=== PATIENT | male | born 1955 | race Caucasian/White ===

== ENCOUNTER 2022-09-29 10:50 | Emergency (ER) | payer MEDICARE, BC, SELFPAY ==
[2022-09-29] VITALS (30 sets, daily range): BP systolic 106–157; BP diastolic 78–92; PULSE 73–118; RESP 11–97; TEMP 36.4; O2SAT 94–99; BMI 34.2
--- NOTE | 2022-09-29 11:41 | ED.ARRPALP ---
HPI - Arrhythmia/Palpitations General Chief Complaint: Arrhythmia/Palpitations Stated Complaint: Afib Time Seen by Provider: 09/29/22 11:14 History of Present Illness HPI narrative: This 66-year-old male comes in with atrial fibrillation and rapid ventricular response. He states that he did not know that he was in this kind of rhythm. He was noted to have a heart rate at around 170 beats per minute prior to arrival. He arrives here with tachycardia around 120 beats per minute. He is not describing any symptoms. He is taking Eliquis and states that he also takes diltiazem long-acting in the evening. Related Data Allergies Allergy/AdvReac Type Severity Reaction Status Date / Time No Known Drug Allergies Allergy Verified 09/29/22 10:56 Review of Systems Status of ROS: Reports: 10 or more systems reviewed and unremarkable except as noted in History and below Narrative: Constitutional: No fevers, no weight gain or loss. Eyes: No discharge. No vision changes. HENT: No congestion, no sore throat, no ear pain. Cardiovascular: No chest pain, no palpitations. Respiratory: No shortness of breath, no wheezes, no cough. Gastrointestinal: No abdominal pain, no vomiting, no diarrhea. Genitourinary: No dysuria, no hematuria. Musculoskeletal: Normal range of motion. Skin: No rashes, no pruritis. Neurological: No dizziness, weakness, sensory change, speech change. Endo/Heme/Allergies: No bruising or bleeding. No polydipsia. Pysch: no suicidality, no anxiety, no insomnia. All other systems reviewed and are negative. PFSH PFS Social History Smoking Status: Former smoker Do you use any of these nicotine containing products: None Second hand tobacco smoke exposure: Yes How often do you have a drink containing alcohol: never How often do you have six or more drinks on one occasion: Never AUDIT-C Alcohol total score: 0 Non-prescribed substance use: denies use service: No Exam Narrative: Exam Narrative: Constitutional: Well-developed, well-nourished, no acute distress. HEENT: Normocephalic, atraumatic. Neck: Normal range of motion. Nontender. Supple. Heart: Irregular. No murmurs. Tachycardia, rate 100-120 beats per minute. Intact distal pulses. Lungs: Clear to auscultation. No chest discomfort. No wheezes, rhonchi, or rales. Abdomen: Normal bowel sounds. Nontender. No rebound tenderness. Genitalia: Deferred. Back: No midline tenderness. Normal range of motion. Extremities: Normal range of motion. No injury. No pedal edema. Skin: Intact. No rash. Warm. No erythema or pallor. Neurologic: No altered sensation. No weakness. Alert and oriented. Psychiatric: No suicidality. No anxiety or depression. No insomnia. Nursing notes and vitals signs are reviewed. Const: Vital Signs, click to edit/add: Vital Signs - 24 hr 09/29/22 10:57 09/29/22 11:01 09/29/22 11:02 Temperature 97.6 F Pulse Rate 96 103 H Pulse Rate [Pulse Oximeter] 118 H Respiratory Rate 97 H Blood Pressure 126/92 H Blood Pressure [Le ft Upper Arm] 126/92 H Pulse Oximetry 97 98 97 Oxygen Delivery Me thod Room Air Oxygen Flow Rate 09/29/22 11:15 09/29/22 11:30 09/29/22 11:45 Temperature Pulse Rate 95 93 95 Pulse Rate [Pulse Oximeter] Respiratory Rate Blood Pressure Blood Pressure [Le ft Upper Arm] Pulse Oximetry 97 95 96 Oxygen Delivery Me thod Oxygen Flow Rate 09/29/22 11:57 09/29/22 12:00 09/29/22 12:01 Temperature Pulse Rate 97 102 H 103 H Pulse Rate [Pulse Oximeter] Respiratory Rate Blood Pressure 125/85 114/81 Blood Pressure [Le ft Upper Arm] Pulse Oximetry 98 98 97 Oxygen Delivery Me thod Oxygen Flow Rate 09/29/22 12:15 09/29/22 12:30 09/29/22 12:31 Temperature Pulse Rate 94 97 89 Pulse Rate [Pulse Oximeter] Respiratory Rate Blood Pressure 106/87 Blood Pressure [Le ft Upper Arm] Pulse Oximetry 96 97 95 Oxygen Delivery Me thod Oxygen Flow Rate 09/29/22 12:59 09/29/22 13:00 09/29/22 13:01 Temperature Pulse Rate 89 Pulse Rate [Pulse Oximeter] Respiratory Rate 17 18 16 Blood Pressure 157/86 H Blood Pressure [Le ft Upper Arm] Pulse Oximetry 99 Oxygen Delivery Me thod Oxygen Flow Rate 09/29/22 13:01 09/29/22 13:01 09/29/22 13:01 Temperature Pulse Rate 89 89 89 Pulse Rate [Pulse Oximeter] Respiratory Rate 16 16 16 Blood Pressure 157/86 H 157/86 H 157/86 H Blood Pressure [Le ft Upper Arm] Pulse Oximetry 99 99 99 Oxygen Delivery Me thod Oxygen Flow Rate 09/29/22 13:12 09/29/22 13:15 09/29/22 13:18 Temperature Pulse Rate 84 79 76 Pulse Rate [Pulse Oximeter] Respiratory Rate 22 21 18 Blood Pressure 114/78 122/80 Blood Pressure [Le ft Upper Arm] Pulse Oximetry 94 98 98 Oxygen Delivery Me thod Oxygen Flow Rate 09/29/22 13:22 09/29/22 13:22 09/29/22 13:25 Temperature Pulse Rate 74 Pulse Rate [Pulse Oximeter] Respiratory Rate 18 Blood Pressure 117/80 Blood Pressure [Le ft Upper Arm] Pulse Oximetry 99 97 99 Oxygen Delivery Me thod Nasal Cannula Nasal Cannula Oxygen Flow Rate 2 2 09/29/22 13:26 09/29/22 13:27 09/29/22 13:30 Temperature Pulse Rate 73 74 74 Pulse Rate [Pulse Oximeter] Respiratory Rate 15 16 13 Blood Pressure 129/82 Blood Pressure [Le ft Upper Arm] Pulse Oximetry 98 97 97 Oxygen Delivery Me thod Oxygen Flow Rate 09/29/22 13:31 09/29/22 13:37 09/29/22 13:42 Temperature Pulse Rate 76 73 76 Pulse Rate [Pulse Oximeter] Respiratory Rate 17 Blood Pressure 125/80 120/82 124/79 Blood Pressure [Le ft Upper Arm] Pulse Oximetry 98 97 97 Oxygen Delivery Me thod Oxygen Flow Rate 09/29/22 13:45 09/29/22 13:46 09/29/22 13:47 Temperature Pulse Rate 73 75 78 Pulse Rate [Pulse Oximeter] Respiratory Rate 14 11 L 12 Blood Pressure 131/84 Blood Pressure [Le ft Upper Arm] Pulse Oximetry 97 98 96 Oxygen Delivery Me thod Oxygen Flow Rate 09/29/22 13:51 Temperature Pulse Rate 79 Pulse Rate [Pulse Oximeter] Respiratory Rate Blood Pressure 130/81 Blood Pressure [Le ft Upper Arm] Pulse Oximetry 98 Oxygen Delivery Me thod Oxygen Flow Rate Course Course Hospital Course: Procedure note: I was asked to provide sedation for cardioversion. Please see Dr. Pate's full note. Patient was maintained on bus driver/monitor, oximetry, end-tidal CO2. Respiratory therapy was present as well. Patient was given 80 mg of propofol based on a weight of 111 kg. He had adequate sedation with that dose and was cardioverted successfully. He had no apnea, hypoxia, hypercapnia. Awakened without difficulty. No immediate complications. Vital Signs Vital signs: Initial Vital Signs Temperature 97.6 F 09/29/22 10:57 Temperature Source Temporal Artery Scan 09/29/22 10:57 Pulse Rate 118 H 09/29/22 10:57 Pulse Rhythm Irregular 09/29/22 10:57 Respiratory Rate 97 H 09/29/22 10:57 Blood Pressure 126/92 H 09/29/22 10:57 Blood Pressure Mean 103 09/29/22 10:57 Blood Pressure Position Supine 09/29/22 10:57 Pulse Oximetry 97 09/29/22 10:57 Oxygen Delivery Method Room Air 09/29/22 10:57 Vital Signs Temperature 97.6 F 09/29/22 10:57 Pulse Rate 118 H 09/29/22 10:57 Respiratory Rate 97 H 09/29/22 10:57 Blood Pressure 126/92 H 09/29/22 10:57 Pulse Oximetry 97 09/29/22 10:57 Oxygen Delivery Method Room Air 09/29/22 10:57 Temperature 97.6 F 09/29/22 10:57 Pulse Rate 79 09/29/22 13:51 Respiratory Rate 12 09/29/22 13:47 Blood Pressure 130/81 09/29/22 13:51 Pulse Oximetry 98 09/29/22 13:51 Oxygen Delivery Method Nasal Cannula 09/29/22 13:25 Oxygen Flow Rate 2 09/29/22 13:25 MDM - Arrhythmia/Palpitations MDM Narrative Medical decision making narrative: This patient arrives with atrial fibrillation and rapid ventricular response. He is taking Eliquis and also does take a long-acting diltiazem in the evenings. An IV was established where he did receive a half a L of normal saline. Lab results returned with normal findings. The patient did receive an additional 10 mg of diltiazem intravenously. This brought about good rate control but he continues in atrial fibrillation. The patient is a candidate for cardioversion. I did explain risks and benefits and the patient wishes to have cardioversion with sedation. The patient states that he did have a glazed donut about 4 hours prior to arrival. Dr. Radford assisted in this procedure. Respiratory therapy also was present. After acquiring informed consent, The patient did receive 80 mg of propofol intravenously to acquire sufficient sedation. He received a 1 time cardioversion with 150 joules of energy. This brought him back to normal sinus rhythm. Repeat EKG shows this with a rate of 75 beats per minute. At the time of discharge the patient appears safe for outpatient management. The treatment plan is reviewed along with written and verbal return precautions. Reasons to return and the importance of close followup were also reviewed. Lab Data Labs: Lab Results 09/29/22 Range/Units 11:05 WBC 8.55 (4.50-11.00) K/uL RBC 4.75 (4.30-5.90) m/uL Hgb 14.8 (13.5-17.5) gm/dL Hct 43.7 (37.0-53.0) % MCV 92 (80-100) fL MCH 31 (26-34) pg MCHC 34 (32-36) gm/dL RDW Coeff of [place] 12.9 (11.5-15.5) % Plt Count 255 (140-440) K/uL Neut % (Auto) 65.8 (42.0-72.0) % Lymph % (Auto) 20.1 (20-44) % [place] % (Auto) 10.5 (0.0-11.0) % Eos % (Auto) 2.5 (0.0-7.0) % Baso % (Auto) 0.9 (0.0-3.0) % Neut # (Auto) 5.62 (1.7-7.0) K/uL Lymph # (Auto) 1.72 (0.90-2.90) K/uL [place] # (Auto) 0.90 (0.00-0.90) K/UL Eos # (Auto) 0.21 (0.00-0.50) K/uL Baso # (Auto) 0.08 (0.00-0.30) K/uL Sodium 138 (135-149) mmol/L Potassium 4.2 (3.6-5.1) mmol/L Chloride 100 (96-114) mmol/L Carbon Dioxide 27 (20-32) mmol/L BUN 16 (7-30) mg/dL Creatinine 1.0 (0.5-1.5) mg/dL Estimated Creat Clear 76.35 Estimated GFR 82 ml/min Glucose 115 (60-115) mg/dL Calcium 9.9 (8.4-10.6) mg/dL POC Troponin I 0.00 L (0.01-0.04) ng/ml ECG Data Attestation: I personally reviewed and interpreted this ECG as follows: Interpretation: Atrial fibrillation with rapid ventricular response. Rate is 114 beats per minute. There are no specific ST or T-wave abnormalities. Discharge Plan Discharge Clinical Impression: Atrial fibrillation with rapid ventricular response Clinical Impression: (Ruled Out): Atrial fibrillation Patient Disposition: Home w/ Parent or Adult Instructions: A-fib (Atrial Fibrillation) (ED) Additional Instructions: Continue current medications. Follow up with MD or return if symptoms are recurrent or worsening. Follow Up/Referrals: Gerry Smart MD [Primary Care Provider] - Stand Alone Forms: [facility] Info Instructions
[2022-09-29 11:48] LABS: Basophils Absolute Auto 0.08 K/uL (0.00-0.30); Basophils Percent Auto 0.9 % (0.0-3.0); Eosinophils Absolute Auto 0.21 K/uL (0.00-0.50); Eosinophils Percent Auto 2.5 % (0.0-7.0); Hematocrit 43.7 % (37.0-53.0); Hemoglobin* 14.8 gm/dL (13.5-17.5); Immature Granulocytes Abs Auto 0.02 K/uL (0.00-0.30); Immature Granulocytes Pct Auto 0.2 %; Lymphocytes Absolute Auto 1.72 K/uL (0.90-2.90); Lymphocytes Percent Auto 20.1 % (20-44); Mean Corpuscular HGB Conc 34 gm/dL (32-36); Mean Corpuscular Hemoglobin 31 pg (26-34); Mean Corpuscular Volume 92 fL (80-100); Monocytes Percent Auto 10.5 % (0.0-11.0); Neutrophils Absolute Auto 5.62 K/uL (1.7-7.0); Neutrophils Percent Auto 65.8 % (42.0-72.0); Platelet Count* 255 K/uL (140-440); RDW Coefficient of Variation % 12.9 % (11.5-15.5); Red Blood Count 4.75 m/uL (4.30-5.90); White Blood Count* 8.55 K/uL (4.50-11.00)
[2022-09-29] MEDS: 0.9 % SODIUM CHLORIDE 500 ML 500 ML IV (11:58)
[2022-09-29] MEDS: dilTIAZem 5 MG/ML inj 10 MG IVP (11:58)
[2022-09-29 12:04] LABS: Chloride* 100 mmol/L (96-114); Potassium* 4.2 mmol/L (3.6-5.1); Sodium* 138 mmol/L (135-149)
[2022-09-29 12:07] LABS: Blood Urea Nitrogen* 16 mg/dL (7-30); Calcium* 9.9 mg/dL (8.4-10.6); Carbon Dioxide* 27 mmol/L (20-32); Est. Creatinine Clearance* 76.35; Estimated Glomerular Filt Rate 82 ml/min; Glucose* 115 mg/dL (60-115)
[2022-09-29 12:12] LABS: Slide Review Reflex No
[2022-09-29] MEDS: PROPOFOL 10 MG/ML INJ 200 MG IVP (13:27)
== END 2022-09-29 14:04 | disposition home or self-care (01) ==
PROVIDERS: Emergency Provider Emergency Medicine Emergency Medical Services; PCP Family Medicine
DX: I48.91 Unspecified atrial fibrillation (principal)
CPT/HCPCS: 36415; 80048; 84484; 85025; 92960; 93005; 96361; 96374; 99284; J2704; J7120

== ENCOUNTER 2023-11-05 07:38 | Outpatient (CLI) | payer MEDICARE, BC, SELFPAY ==
--- OUTSIDE RECORDS SUMMARY | 2023-11-05 07:41 | XMS_ITS | Clinical Summary ---
Author Organization [facility] Address [place], [place] [address] Care Team Providers Care Sprigger Name Role Phone Gerry Smart MD Primary Care Provider Allergies Active Allergy Reactions Criticality Noted Date Comments Hydrochlorothiazide Other - Describe In Comment Field 07/21/2022 Cramps resolved without it Medications Medication Sig Dispensed Refills Start Date End Date Status multivitamin (MVI) tablet Take 1 tablet by mouth once daily. 0 08/17/2016 Active metoprolol succinate (TOPROL XL) 50 mg sustained-release tabletIndications:P aroxysmal atrial fibrillation (HC) Take 0.5 Tablets (25 mg) by mouth two times daily. FURTHER REFILLS AT OFFICE VISIT ON 01/08/23 90 Tablet 3 01/30/2023 Active rosuvastatin (CRESTOR) 5 mg tabletIndications:M ixed hyperlipidemia Take 1 Tablet (5 mg) by mouth at bedtime. 90 Tablet 3 01/30/2023 Active polyethylene glycol-electrolyte (GOLYTELY) 236-22.74-6.74 -5.86 gram suspensionIndicatio ns:Benign neoplasm of colon, unspecified part of colon Drink 2 liters the day before colonoscopy and 2 liters 6 hours before colonoscopy appointment 4000 mL 10/29/2023 Active apixaban (Eliquis) 5 mg tabletIndications:P aroxysmal atrial fibrillation (HC) Take 1 Tablet (5 mg) by mouth two times daily. 180 Tablet 2 09/26/2023 Active lisinopriL (PRINIVIL; ZESTRIL) 10 mg tabletIndications:E ssential hypertension Take 1 Tablet (10 mg) by mouth once daily. 90 Tablet 10/26/2023 Active lisinopriL (PRINIVIL; ZESTRIL) 10 mg tabletIndications:E ssential hypertension Take 1 Tablet (10 mg) by mouth once daily. 90 Tablet 3 01/30/2023 4 Discontinu ed(*Availa bility/For mulary change/Cos t of medication ) propafenone (RYTHMOL) 150 mg tabletIndications:P aroxysmal atrial fibrillation (HC) Take 1 Tablet (150 mg) by mouth every 12 hours. 180 Tablet 2 05/01/2023 4 Discontinu ed(*Patien t states no longer taking) Active Problems Problem Noted Date Diagnosed Date Atrial fibrillation 10/09/2023 Anticoagulation monitoring, DOAC 04/09/2020 Controlled type 2 diabetes m ellitus without complication, without long-term current use of insulin 02/04/2020 Paroxysmal atrial fibrillation 02/06/2017 Unspecified essential hypertension 02/18/2013 Benign neoplasm of colon 12/21/2009 Overview: Colonoscopy 11/2009 polyps repeat in 3 years Colonoscopy 09/2012 polyp repeat in 5 years Colonoscopy 05/2018 polyps, repeat in 5 years Mixed hyperlipidemia 11/28/2006 Obesity, unspecified 11/28/2006 Resolved Problems Problem Noted Date Diagnosed Date Resolved Date Atrial fibrillation, unspecified type 04/08/2020 07/21/2022 Shoulder dislocation, left, subsequent encounter 05/30/2018 07/21/2021 Atrial fibrillation 02/06/2017 07/22/19 22 Anticoagulation monitoring, INR range 2-3 [Z79.01] 12/15/2015 04/08/2020 Vitamin D deficiency 04/21/2014 020 Tobacco use disorder 11/28/2006 020 Impaired fasting glucose 11/28/2006 Encounters Date Type Department Care Team Description 11/02/2023 Travel 10/24/2023 Refill [facility] [address] [place] [address] Gerry Smart MD Refill Request (Lisinopril) 10/22/2023 10:05 AM CDT Preop Visit [facility] [address] [place] [address] Gerry Smart MD Preoperative Exam (DOS: 11/05/2023, colonoscopy, Dr. Calloway, [facility] ) 10/21/2023 Travel 10/17/2023 Telephone [facility] [address] [place] [address] Marnie Mcqueen NP Abstract 10/09/2023 2:30 PM CDT Office Visit [facility] [address] [place] [address] Paxton Ayers MD Follow Up (05/01/23 Ablation) 10/09/2023 Travel 09/25/2023 Refill [facility] [address] [place] [address] Gerry Smart MD Refill Request (Eliquis) 09/10/2023 7:30 AM CDT Ancillary Procedure [facility] [address] [place] [address] 09/10/2023 Travel 09/07/2023 2:00 PM CDT Ancillary Procedure [facility] [address] [place] [address] 09/07/2023 Travel 08/06/2023 8:00 AM CDT Office Visit [facility] [address] [place] [address] Gerry Smart MD Diabetes (3 month follow up) 08/06/[address] [address] Aleksandr Calloway MD Appointment 08/06/2023 Travel from Last 3 Months Immunizations Name Administration Dates Next Due COVID-19 Vaccine Spikevax (M oderna 50mcg/0.5mL) 12YO+ [id number] Formula PF 08/06/2023 COVID-19 vaccine (Pfizer-Bio NTech 30mcg/0.3mL) 12YO+ BIVALENT SHANIQUE CHO 05/16/2022 COVID-19 vaccine (Pfizer-Bio NTech 30mcg/0.3mL) 12YO+ PAOLO-SUCROSE PF MDV 01/03/2022 COVID-19 vaccine (Ekso BionicsBio NTech 30mcg/0.3mL) PF, MDV 02/13/2021,07/11/2020,06/18/2020 Influenza A (H1N1), Inactivated 05/07/2009 Influenza Virus, Unspecified 03/21/2014 Influenza, High-dose Quadriv alent Inactivated 03/03/2022,02/10/2021 Influenza, IIV3 (Age >=3 years) 02/18/2013,02/13,02/08/2011 Influenza, IIV4 02/16/2016,02/18/2015 Influenza, IIV4 (=>6mos) MDV 03/06/2019,02/26/20 18,02/06/2017 Influenza, Inactivated AIIV4 (Age 65+ Years) Preserv Free 01/30/2023,02/04/2020 Pneumococcal Conj 20-valent (Prevnar 20) 022 Pneumococcal Poly,23-Valent (Pneumovax) 04/21/20 14 Pneumococcal conj 13-Valent (Prevnar 13) 020 Td (Age >=7 Years) 10/14/1996 Tdap 06/27/2016,10/24/2006 Zoster (Shingrix-RZV, recombinant) 05/05/2019, Zoster (Zostavax-ZVL, live) 05/06/2013 Family History Medical History Relation Name Comments Cancer Father leukemia/ decea sed at 71 Diabetes Maternal Grandfather Heart Disease Maternal Grandfather mi bef ore 55 Other Maternal Grandfather suma ons Diabetes Mother Cancer-prostate Neg. Cancer Paternal Grandmother pancrea tic Anesthesia Problem No Family History Relation Name Status Comments Father Maternal Grandfather Mother Alive Neg. Paternal Grandmother Social History Tobacco Use Types Packs/Day Years Used Date Smoking Tobacco: Former Cigarettes 1 40 0 12/23/1975 - 12/23/2015 Smokeless Tobacco: Never Tobacco Cessation:Counseling Given: No Comments:Patient using nicotine lozenges Alcohol Use Standard Drinks/Week Comments No 0 (1 standard drink = 0.6 oz pur e alcohol) PHQ-2 Answer Date Recorded PHQ-2 TOTAL SCORE 0 01/30/2023 Social Connections Answer Date Recorded Frequency of Communication with Friends and Fami ly 0 01/30/2023 Financial Resource Strain Answer Date R ecorded Difficulty of Paying Living Expenses 3 01/30/2023 Difficulty of Paying Living Expenses Not on file 01/30/2023 Food Insecurity Answer Date Recorded Worried About Running Out of Food in the Last Ye ar 1 01/30/2023 Transportation Needs Answer Date Record ed Lack of Transportation (Medical) 1 01/30/2023 Housing Stability Answer Date Recorded Unable to Pay for Housing in the Last Year 1 01/30/2023 Sex and Gender Information Value Date Recorded Sex Assigned at Male 09/10/2023 5:36 AM CDT Gender Identity Male 09/10/2023 5:36 AM CDT Sexual Orientation Straight 09/10/2023 5: 36 AM CDT Obstetrics History Last Filed Vital Signs Vital Sign Reading Time Taken Comments Blood Pressure 145/79 10/22/2023 10:07 AM CDT Pulse 52 10/22/2023 10:07 AM CDT Temperature 36.7 ??C (98.1 ??F) 01/10/2023 7:09 AM CD T Respiratory Rate 18 01/10/2023 8:44 AM CDT Oxygen Saturation 98% 10/22/2023 10:07 AM CDT Inhaled Oxygen Concentration - - Weight 112 kg (247 lb) 10/22/2023 10:07 AM CDT Height 182.9 cm (6') 10/22/2023 10:07 AM CDT Body Mass Index 33.5 10/22/2023 10:07 AM CDT Plan of Treatment Upcoming Encounters Date Type Department Care Team (Late st Contact Info) Description 11/05/2023 7:45 AM CDT Office Visit [facility] [address] [place] [address] Aleksandr Calloway MD [address] [place] [address] 02/13/2024 2:30 PM CDT Office Visit [address] [place] [address] Loli Haywood PA [address] [facility] [address] [place] [address] 02/25/2024 7:15 AM CDT Orders Only [facility] [address] [place] [address] [place], [place] 02/25/2024 8:00 AM CDT Office Visit [facility] [address] [place] [address] Gerry Smart MD [address] [facility] [address] Health Maintenance Due Date Last Done Comments Colonoscopy through age 75 06/03/202306/03, 06/03/2018, 06/03/2018, Additional history exists COVID-19 vaccine series ( season) 2023 08/06/2023, 05/16/2022, 01/03/2022, Additional history exists Influenza for age 65+ 01/20/2024 01/30/2023 , 03/03/2022, 02/10/2021, Additional history exists Depression screening for age 12+ 01/31/2024 01/30/2023, 01/03/2022, 02/04/2020, Additional history exists Medicare Wellness for age 65+ 01/31/2024 01/30/[address] (for lung CA) ag e 50-80 09/09/2024 09/10/2023, 09/04/2022, 09/01/2021, Additional history exists BMI (ht and wt on same day) for age 18+ 10/21/2024 10/22/2023, 05/01/2023, 01/30/2023, Additional history exists Tetanus booster 06/27/2026 06/27/2016, 10/2006, 10/14/1996 Lipids for age 45-75 01/16/2028 01/15/2023, 01/03/2022, 12/13/2020, Additional history exists Tdap Completed 06/27/2016, 10/24/2006 Hepatitis C screening for ag e 18-79 Completed 09/12/2017 Zoster (shingles) series for age 50+ Completed 05/05/2019, 03/06/2019, 05/06/2013 Pneumococcal series for age 65+ Completed 05/16/2022, 02/04/2020, 04/21/2014 AAA screening age 65-74 Completed 02/19/2023 Procedures Procedure Name Priority Date/Time Associated Diagnosis Comments CT CHEST SCREENING LOW DOSE WO CONTRAST Routine 09/10/2023 7:34 AM CDT Former smoker Encounter for screening for lung cancer ECHO TTE COMPLETE WO CONTRAST Routine 09/07/2023 2:42 PM CDT LVH (left ventricular hypertrophy) HEMOGLOBIN A1C Routine 08/06/2023 7:51 AM CDT Controlled type 2 diabetes mellitus without complication, without long-term current use of insulin (HC) US AORTA Routine 02/19/2023 8:18 AM CDT Screening for AAA (abdominal aortic aneurysm) LIPID PANEL W REFLEX MEASURED LDL Routine 01/15/2023 7:03 AM CDT Controlled type 2 diabetes mellitus without complication, without long-term current use of insulin (HC) COLONOSCOPY SCREENING Routine 06/03/2018 Screening for colon cancer ANTI HCV Routine 09/12/2017 9:16 AM CDT Need for hepatitis C screening test from Last 3 Months or Most Recently Relevant to Health Maintenance Results * CT CHEST SCREENING LOW DOSE WO CONTRAST (09/10/2023 7:34 AM CDT) Anatomical Region Laterality Modality Computed Tomogra phy Impressions 09/11/2023 1:49 PM CDT Negative for lung cancer screening purposes. LUNG-RADS CATEGORY 2: Benign. RADIOLOGIST RECOMMENDATION: Continue annual screening with low-dose CT chest in 12 months. Please note that all CT scans at this facility use dose modulation, iterative reconstruction and/or weight-based dosing when appropriate to reduce radiation dose to as low as reasonably achievable. ?? Dictated by: Chuck Oconnor MD @09/10/2023 11:34:06 AM/CRL:lamine Narrative 09/11/2023 1:49 PM CDT For Patients: As a result of the Century Cures Act, medical imaging exams and procedure reports are released immediately into your electronic medical record. ??You may view this report before your referring provider. ?? If you have questions, please contact your health care provider. CHEST SCREENING LOW DOSE WITHOUT CONTRAST INDICATION: Lung cancer screening. History of smoking. High risk patient with greater than 20 pack-year smoking history. TECHNIQUE: Low-dose lung cancer screening non-contrast CT chest. Dose reduction techniques were used. COMPARISON: 09/04/2022 FINDINGS: NODULES: Small calcified granuloma within the right lower lobe. LUNGS AND PLEURA: Biapical pleural-parenchymal scarring. Mild emphysematous changes. MEDIASTINUM: Atherosclerotic changes. No adenopathy. CORONARY ARTERY CALCIFICATION: Present. LIMITED UPPER ABDOMEN: Calcified gallstone is similar. MUSCULOSKELETAL: Normal. Gerry Smart MD CT * ECHO TTE COMPLETE WO CONTRAST (09/07/2023 2:42 PM CDT) AORTIC VALVE MEAN PG 4 mmHg EJECTION FRACTION 69 % PEAK TR VELOCITY 2.3 m/s LVEDD 4.8 cm Anatomical Region Laterality Modality Ultrasound 09/07/2023 2:14 PM CDT Narrative 09/07/2023 4:05 PM CDT ECHOCARDIOGRAM KELVIN THOMAS ? Accession#: ?? [id number] : ?1955 67 years Study Date: ?? 09/07/2023 2:14:31 PM Gender: M ?BP: ? 135/65 mmHg Height: 180.00 cm ?BSA: ?2.35 m? ? ? Weight: 118.00 kg ?Tech: ? MJS ? Referring MD: MARNIE MCQUEEN Site: ? [facility] Reading Location: Mobile OP Patient Location: Outpatient. Procedure: 2D, Color Doppler and Spectral Doppler. Indication for study: LVH Cardiac Rhythm: Irregular.Study quality: Good. Final Impressions: 1. Normal left ventricular size, normal wall thickness, normal global systolic function, calculated EF of 69 %. 2. The aortic valve is trileaflet and sclerotic, no stenosis and no regurgitation. Chamber Sizes and Function Normal left ventricular size, normal wall thickness, normal global systolic function, calculated EF of 69 %. Left atrial size is normal. Right ventricular cavity size is normal, global systolic RV function is normal. RV wall thickness is normal. The right atrium is normal. Right atrial area is 16 cm? ? ?. The pulmonary artery is of normal size and origin. The sinus of Valsalva is normal sized. The ascending aorta is normal sized. Valves, RV Pressures and Diastolic Function The aortic valve is trileaflet and sclerotic, no stenosis and no regurgitation. The mitral valve is normal in structure, no mitral regurgitation. Indeterminate pattern of LV diastolic filling. The tricuspid valve is normal in structure. Tricuspid regurgitation is trace regurgitation. The tricuspid regurgitant velocity is 2.3 m/s, the estimated right ventricular systolic pressure is 21 mmHg plus right atrial pressure. There is normal estimated pulmonary pressure by tricuspid regurgitation velocity and right atrial pressure. The pulmonic valve is normal. No pulmonary regurgitation. TTE images do not appear adequate for transcather intervention with patient supine. Masses, Effusion, Shunts There is no pericardial effusion. The inferior vena cava is normal sized, respiratory size variation greater than 50%. No left to right shunting was detected by limited color flow Doppler interrogation of the interatrial septum. MEASUREMENTS AND CALCULATIONS 2-D Measurements and LV Function: LVID (d) 4.8 cm Planimetered EF 69 % LVID (s) 2.9 cm LV FS% (2D) ? 40 % IVS (d) ??1.1 cm LVOT diameter ?? 2.2 cm LVPW (d) 1.1 cm HR ?47 bpm Ao Sinus 3.8 cm LA Vol index ?25 ml/m2 Asc Ao ?? 3.6 cm RA area ? 16 cm?RV Max 4C (d) ?? 4.3 cm Diastology: Mitral ?Tissue Doppler E Peak 1.1 m/s ??e', Septum ? 0.11 m/s A Peak 0.5 m/s ??e', Lateral ?0.13 m/s E/A ?2.1 ?E/e' Average ?? 9.02 DT ? 250 msec Aortic Valve: Vmax ? 1.4 m/s ??TATI (V) ?? 2.96 cm? ? ? VTI ?0.40 m ?? TATI (I) ?? 2.41 cm? ? ? LVOT V max 1.1 m/s ??Max PG ?8 mmHg LVOT VTI ?? 0.25 m ?? Mean PG ?? 4 mmHg SV ? 96 ml ?Dim Index 0.62 SV index ?? 41 ml/m? ? ? CO ?4.5 l/min ?CI ?1.9 l/min/m? ? ? Mitral Valve: MVA ?3.0 cm? ? ? MV P 1/2 73 msec Tricuspid Valve and estimated PA pressures: TR Vmax 2.3 m/s TAPSE 3.6 cm TR maxG 21 mmHg . This study was interpreted by an [facility] accredited facility. ??Final ?? Procedure Note Rex Lucio MD - 09/07/2023 ECHOCARDIOGRAM KELVIN THOMAS : 1955 67 years Study Date: 09/07/2023 2:14:31 PM Gender: M BP: 135/65 mmHg Height: 180.00 cm BSA: 2.35 m? ? ? Weight: 118.00 kg Tech: ZACK Referring MD: MARNIE MCQUEEN Site: [facility] Reading Location: Mobile OP Patient Location: Outpatient. Procedure: 2D, Color Doppler and Spectral Doppler. Indication for study: LVH Cardiac Rhythm: Irregular.Study quality: Good. Final Impressions: 1. Normal left ventricular size, normal wall thickness, normal globalsystolic function, calculated EF of 69 %. 2. The aortic valve is trileaflet and sclerotic, no stenosis and noregurgitation. Chamber Sizes and Function Normal left ventricular size, normal wall thickness, normal globalsystolic function, calculated EF of 69 %. Left atrial size is normal.Right ventricular cavity size is normal, global systolic RV function isnormal. RV wall thickness is normal. The right atrium is normal. Rightatrial area is 16 cm? ? ?. The pulmonary artery is of normal size and origin.The sinus of Valsalva is normal sized. The ascending aorta is normalsized. Valves, RV Pressures and Diastolic Function The aortic valve is trileaflet and sclerotic, no stenosis and noregurgitation. The mitral valve is normal in structure, no mitralregurgitation. Indeterminate pattern of LV diastolic filling. Thetricuspid valve is normal in structure. Tricuspid regurgitation is traceregurgitation. The tricuspid regurgitant velocity is 2.3 m/s, theestimated right ventricular systolic pressure is 21 mmHg plus right atrialpressure. There is normal estimated pulmonary pressure by tricuspidregurgitation velocity and right atrial pressure. The pulmonic valve isnormal. No pulmonary regurgitation. TTE images do not appear adequate fortranscather intervention with patient supine. Masses, Effusion, Shunts There is no pericardial effusion. The inferior vena cava is normal sized,respiratory size variation greater than 50%. No left to right shunting wasdetected by limited color flow Doppler interrogation of the interatrialseptum. MEASUREMENTS AND CALCULATIONS 2-D Measurements and LV Function: LVID (d) 4.8 cm Planimetered EF 69 % LVID (s) 2.9 cm LV FS% (2D) 40 % IVS (d) 1.1 cm LVOT diameter 2.2 cm LVPW (d) 1.1 cm HR 47 bpm Ao Sinus 3.8 cm LA Vol index 25 ml/m2 Asc Ao 3.6 cm RA area 16 cm? ? ? RV Max 4C (d) 4.3 cm Diastology: Mitral Tissue Doppler E Peak 1.1 m/s e', Septum 0.11 m/s A Peak 0.5 m/s e', Lateral 0.13 m/s E/A 2.1 E/e' Average 9.02 DT 250 msec Aortic Valve: Vmax 1.4 m/s TATI (V) 2.96 cm? ? ? VTI 0.40 m TATI (I) 2.41 cm? ? ? LVOT V max 1.1 m/s Max PG 8 mmHg LVOT VTI 0.25 m Mean PG 4 mmHg SV 96 ml Dim Index 0.62 SV index 41 ml/m? ? ? CO 4.5 l/min CI 1.9 l/min/m? ? ? Mitral Valve: MVA 3.0 cm? ? ? MV P 1/2 73 msec Tricuspid Valve and estimated PA pressures: TR Vmax 2.3 m/s TAPSE 3.6 cm TR maxG 21 mmHg . This study was interpreted by an [facility] accredited facility. Final Marnie Mcqueen [employer] ECHO ORD * HEMOGLOBIN A1C MONITORING (POCT) (08/06/2023 7:51 AM CDT) HEMOGLOBIN A1C MONITORING (POCT) 6.2 <=6.4 % 08/06/2023 8:00 AM CDT [facility] Blood BLOOD SPECIMEN / Unknown Venipuncture / Unknown 08/06/2023 7:51 AM CDT 08/06/2023 7:51 AM CDT Narrative [facility] - 08/06/2023 8:00 AM CDT ? (<=6.9%) ? Indicates good control ? (7.0% to 7.9%) ? Indicates fair control ? (>=8.0%) ? Indicates poor control ?? NOTE: ??These thresholds are guidelines and ?individual targets may vary. Falsely low levels may be seen with: Recent Transfusion, Recent Significant Blood Loss, Hemolytic Diseases, or Falsely elevated levels may be seen with: Untreated Anemias, Splenectomy ? Gerry Smart MD CHEMISTRY [facility] [address] [place] [address], * US AORTA (02/19/2023 8:18 AM CDT) Anatomical Region Laterality Modality Abdomen, AORTA Ultrasound 02/19/2023 3:46 PM CDT Narrative 02/19/2023 3:46 PM CDT For Patients: ??As a result of the Cures Act, medical imaging exams and procedure reports are released immediately into your electronic medical record. ??You may view this report before your referring provider. ??If you have questions, please contact your health care provider. Examination: US abdominal aorta Indication: Abdominal aortic aneurysm screening. Technique: Mac scale and color Doppler images of the aorta and common iliac arteries are obtained. Comparison: None Findings: Proximal aorta: 2.5 x 2.8 cm Mid aorta: 2.5 x 2.5 cm Distal aorta: 2.4 x 2.2 cm Right common iliac artery: 1.0 x 1.3 cm Left common iliac artery: 1.1 x 1.4 cm Impression: No abdominal aortic aneurysm. Dictated by Chuck Oconnor MD @ Feb ??2 2022 ??3:46PM (Electronically Signed) ?? Procedure Note Chuck Oconnor MD - 02/19/2023 For Patients: As a result of the Cures Act, medical imagingexams and procedure reports are released immediately into your electronicmedical record. You may view this report before your referring provider.If you have questions, please contact your health care provider. Examination: US abdominal aorta Indication: Abdominal aortic aneurysm screening. Technique: Mac scale and color Doppler images of the aorta and common iliac arteriesare obtained. Comparison: None Findings: Proximal aorta: 2.5 x 2.8 cm Mid aorta: 2.5 x 2.5 cm Distal aorta: 2.4 x 2.2 cm Right common iliac artery: 1.0 x 1.3 cm Left common iliac artery: 1.1 x 1.4 cm Impression: No abdominal aortic aneurysm. Dictated by Chuck Oconnor MD @ Feb 19 2023 3:46PM (Electronically Signed) Gerry Smart MD US * (ABNORMAL) LIPID PANEL W REFLEX MEASURED LDL (01/15/2023 7:03 AM CDT) CHOLESTEROL,TOTAL 147 100 - 199 mg/dL 01/15/2023 2:55 PM CDT [facility] Comment: Cholesterol, Total Reference Ranges Desirable <200 mg/dL Borderline 200-239 mg/dL High >=240 mg/dL TRIGLYCERIDES 134 <150 mg/dL 01/15/2023 2:55 PM CDT [facility] HDL CHOLESTEROL 40(L) >40 mg/dL 2:55 PM CDT [facility] NON-HDL CHOLESTEROL 107 <145 mg/dl 01/15/2023 2:55 PM CDT [facility] CHOL/HDL RATIO 3.68 <4.50 01/15/2023 2:55 PM CDT [facility] LDL CHOLESTEROL 80 <=130 mg/dL 01/15/2023 2:55 PM CDT [facility] VLDL CHOLESTEROL 27 <=30 mg/dL 01/15/2023 2:55 PM CDT [facility] PROVIDER ORDERED STATUS RANDOM 01/15/2023 2:55 PM CDT [facility] Blood BLOOD SPECIMEN / Unknown Venipuncture / Unknown 01/15/2023 7:03 AM CDT 01/15/2023 7:03 AM CDT Gerry Smart MD CHEMISTRY [facility] [address] [place] [address], [place] * COLONOSCOPY SCREENING (06/03/2018) Gerry Smart MD GI PROCEDURE O RD * ANTI HCV [33192.2] (09/12/2017 9:16 AM CDT) HEPATITIS C ANTIBODY Non-React luciana Non-React luciana 09/12/2017 5:42 PM CDT [facility] Comment:Antibodies to HCV no t detected; does not exclude the possibility of exposure to HCV. Blood BLOOD SPECIMEN / Unknown Venipuncture / Unknown 09/12/2017 9:16 AM CDT 09/12/2017 9:17 AM CDT Gerry Smart MD [facility] [address] [place] [address], from Last 3 Months or Most Recently Relevant to Health Maintenance Advance Directives * Full Code (Latest Code Status on File) Date Activated Date Inactivated Comments 01/10/2023 7:05 AM 01/10/2023 11:59 AM Question Answer Comments Code Status Discussion: Reviewed Preferences * Full Code Date Activated Date Inactivated Comments 12/27/2022 3:32 PM 12/28/2022 12:45 PM Question Answer Comments Code Status Discussion: Other (specify in commen ts): * Full Code Date Activated Date Inactivated Comments 11/17/2022 1:28 PM 11/17/2022 5:44 PM Question Answer Comments Code Status Discussion: Reviewed Preferences Care Teams Sprigger Relationship Specialty Start Date End Date Gerry Smart MD [address] [place] [address] PCP - General Family Practice 12/17/15
--- NOTE | 2023-11-05 09:13 | W.ANESCHARGE ---
Anesthesia Charges Start Date/Time Anesthesia Start Date: 11/05/23 Anesthesia Start Time: 08:39 Stop Date/Time Anesthesia Stop Date: 11/05/23 Anesthesia Stop Time: 09:10
--- NOTE | 2023-11-05 09:20 | W.ANESCHARGE ---
Anesthesia Charges Start Date/Time Anesthesia Start Date: 11/05/23 Anesthesia Start Time: 08:39 Stop Date/Time Anesthesia Stop Date: 11/05/23 Anesthesia Stop Time: 09:10
== END 2023-11-05 07:39 | disposition home or self-care (01) ==
LOC: OP CLINIC 07:39
PROVIDERS: PCP Family Medicine; Visit Provider Internal Medicine Gastroenterology
DX: K63.5 Polyp of colon (principal); Z86.010 Personal history of colon polyps
CPT/HCPCS: 00811; 45385; 88305; J2704